=== PATIENT | female | born 1955 | race Caucasian/White ===

== ENCOUNTER 2018-08-02 16:53 | Outpatient (RCR) | payer MEDICARE ==
[2018-08-02 17:14] LABS: BASOPHILS % (AUTO) 0 % (0-10); EOSINOPHILS # (AUTO) 0.1 10^3/uL (0.0-0.3); EOSINOPHILS % (AUTO) 1 % (0-10); HEMATOCRIT 43 % (35-52); HEMOGLOBIN 14.5 G/DL (11.5-16.0); LYMPHOCYTES # (AUTO) 0.8 X 10^3 (1.0-4.0); LYMPHOCYTES % (AUTO) 13 % (12-44); MEAN CORPUSCULAR HEMOGLOBIN 29 PG (25-34); MEAN CORPUSCULAR HGB CONC 34 G/DL (32-36); MEAN CORPUSCULAR VOLUME 86 FL (80-99); MEAN PLATELET VOLUME 9.7 FL (7.4-10.4); MONOCYTES % (AUTO) 16 % (0-12); NEUTROPHILS # (AUTO) 4.3 X 10^3 (1.8-7.8); NEUTROPHILS % (AUTO) 69 % (42-75); PLATELET COUNT 190 10^3/uL (130-400); RED CELL DISTRIBUTION WIDTH 14.7 % (10.0-14.5); WHITE BLOOD COUNT 6.2 10^3/uL (4.3-11.0)
[2018-08-04] MEDS ORDERED: ONDA4TAB11 PO (11:01)
== END 2018-10-31 | disposition home or self-care (01) ==
LOC: LAB 16:53 → EDSTATUS 08-03 08:56
PROVIDERS: ATTEND Nurse Practitioner Family
DX: R19.7 Diarrhea, unspecified (principal); R50.9 Fever, unspecified
CPT/HCPCS: 36415; 85025; 87015; 87045; 87046; 87324; 87449; 87899

== ENCOUNTER 2018-08-04 06:42 | Emergency (ER) | payer MEDICARE ==
[~2018-08-04] VITALS: Ht 172.7 cm; Wt 80.7 kg
[2018-08-04] MEDS ORDERED: NS IV 1000 ML 1,000 ML IV STA (07:00)
[2018-08-04] MEDS ORDERED: ONDANSETRON 4 MG/2 ML (SDV) Z0FRAN IVP ONE (07:00)
--- NOTE | 2018-08-04 08:01 | ED GI ---
General Chief Complaint: Abdominal/GI Problems Stated Complaint: VOMITING Nursing Triage Note: PT AMB TO ROOM 10, A/OX3. PT C/O ABDOMINAL CRAMPS AND N/V/D SINCE TUESDAY. PT WENT TO A CLINIC BACK HOME AND THEY PUT HER ON A CLEAR LIQUID DIET, BUT PT COULDN'T EVEN KEEP THE POWERADE DOWN. PT STATES THEY TESTED HER STOOL BUT SHE HASN'T RECEIVED THE RESULTS YET. Sepsis Screen: No Definite Risk Source of Information: Patient Exam Limitations: No Limitations (MARCIO BOLES MD) History of Present Illness Date Seen by Provider: August 04, 2018 Time Seen by Provider: 07:00 Initial Comments Here with report of nausea, vomiting and diarrhea for the last 4-5 days. She has been seen by her provider and started on medication for diarrhea as well as nausea. She is unable to keep anything down. She's had more episodes of vomiting and diarrhea this morning and is beginning to feel weak. She did have stool cultures ordered that the tests are not completely yet. Denies blood in her stool. Timing/Duration: 4-5 Days Severity/Quality: Moderate, Cramping Location: Generalized Abdomen Radiation: No Radiation Activities at Onset: None Modifying Factors: Improves With Defecating; Worsens With Eating Associated Symptoms: No Back Pain, No Chest Pain, No Fever/Chills; Fatigue, Nausea/Vomiting; No Shortness of Air; Weakness (MARCIO BOLES MD) Allergies and Home Medications Allergies Coded Allergies: codeine (Verified Allergy, Unknown, 08/04/18) Home Medications Ondansetron 4 Mg Tab.rapdis, 4 MG PO Q4H PRN for NAUSEA/VOMITING-1ST LINE Prescribed by: INOCENCIA WILLIS on 08/04/18 1101 Patient Home Medication List Home Medication List Reviewed: Yes (MARCIO BOLES MD) Review of Systems Review of Systems Constitutional: see HPI; No chills, No fever EENTM: No Symptoms Reported Respiratory: No Symptoms Reported Cardiovascular: Denies Chest Pain, Denies Edema Gastrointestinal: Abdominal Pain, Diarrhea, Nausea, Vomiting Genitourinary: No Symptoms Reported Musculoskeletal: no symptoms reported Psychiatric/Neurological: No Symptoms Reported (MARCIO BOLES MD) All Other Systems Reviewed Negative Unless Noted: Yes (MARCIO BOLES MD) Past Xiaecwm-Azbndf-Hwhzwk Hx Past Med/Social Hx: Reviewed Nursing Past Med/Soc Hx (MARCIO BOLES MD) Patient Social History Alcohol Use: Denies Use Recreational Drug Use: No 2nd Hand Smoke Exposure: No Recent Foreign Travel: No Contact w/Someone Who Travel: No Recent Infectious Disease Expo: No Recent Hopitalizations: No (MARCIO BOLES MD) Seasonal Allergies Seasonal Allergies: No (MARCIO BOLES MD) Past Medical History Surgeries: Yes (back surgery x 2 ) Gallbladder, Tonsillectomy Respiratory: No Cardiac: Yes Hypertension Neurological: No Genitourinary: No Gastrointestinal: No Musculoskeletal: No Endocrine: Yes Hypothyroidsim HEENT: No Cancer: No Psychosocial: No Integumentary: No (MARCIO BOLES MD) Family Medical History Reviewed Nursing Family Hx (MARCIO BOLES MD) Physical Exam Vital Signs Vital Signs - First Documented 08/04/18 06:54 Temp 98.0 Pulse 76 Resp 18 B/P (MAP) 138/86 (103) Pulse Ox 97 O2 Delivery Room Air (INOCENCIA RANDHAWA MD) Vital Signs Capillary Refill : Less Than 3 Seconds (MARCIO BOLES MD) Height/Weight/BMI Height: 5'8.00" Weight: 178lbs. oz. 80.084147xa; BMI Method:Stated General Appearance: WD/WN, no apparent distress HEENT: PERRL/EOMI, pharynx normal Neck: full range of motion, supple Respiratory: lungs clear, normal breath sounds Cardiovascular: regular rate, rhythm, no murmur Gastrointestinal: non tender, soft Extremities: non-tender, normal inspection Back: normal inspection, no vertebral tenderness Neurologic/Psychiatric: alert, oriented x 3 Skin: normal color, warm/dry (MARCIO BOLES MD) Progress/Results/Core Measures Results/Orders Lab Results Laboratory Tests Test 08/04/18 08:00 08/04/18 09:49 08/04/18 11:13 Range/Units White Blood Count 5.4 4.3-11.0 10^3/uL Red Blood Count 4.56 4.35-5.85 10^6/uL Hemoglobin 13.3 11.5-16.0 G/DL Hematocrit 39 35-52 % Mean Corpuscular Volume 85 80-99 FL Mean Corpuscular Hemoglobin 29 25-34 PG Mean Corpuscular Hemoglobin Concent 34 32-36 G/DL Red Cell Distribution Width 14.2 10.0-14.5 % Platelet Count 183 130-400 10^3/uL Mean Platelet Volume 9.8 7.4-10.4 FL Neutrophils (%) (Auto) 73 42-75 % Lymphocytes (%) (Auto) 13 12-44 % Monocytes (%) (Auto) 13 H 0-12 % Eosinophils (%) (Auto) 1 0-10 % Basophils (%) (Auto) 0 0-10 % Neutrophils # (Auto) 3.9 1.8-7.8 X 10^3 Lymphocytes # (Auto) 0.7 L 1.0-4.0 X 10^3 Monocytes # (Auto) 0.7 0.0-1.0 X 10^3 Eosinophils # (Auto) 0.1 0.0-0.3 10^3/uL Basophils # (Auto) 0.0 0.0-0.1 10^3/uL Sodium Level 139 135-145 MMOL/L Potassium Level 3.3 L 3.6-5.0 MMOL/L Chloride Level 106 98-107 MMOL/L Carbon Dioxide Level 24 21-32 MMOL/L Anion Gap 9 5-14 MMOL/L Blood Urea Nitrogen 9 7-18 MG/DL Creatinine 0.80 0.60-1.30 MG/DL Estimat Glomerular Filtration Rate > 60 BUN/Creatinine Ratio 11 Glucose Level 112 H 70-105 MG/DL Calcium Level 8.7 8.5-10.1 MG/DL Corrected Calcium 8.9 8.5-10.1 MG/DL Magnesium Level 1.9 1.8-2.4 MG/DL Total Bilirubin 0.8 0.1-1.0 MG/DL Aspartate Amino Transf (AST/SGOT) 102 H 5-34 U/L Alanine Aminotransferase (ALT/SGPT) 129 H 0-55 U/L Alkaline Phosphatase 228 H 40-136 U/L Total Protein 6.3 L 6.4-8.2 GM/DL Albumin 3.8 3.2-4.5 GM/DL Lipase 16 8-78 U/L Urine Color YELLOW Urine Clarity CLEAR Urine pH 7 5-9 Urine Specific [place] 1.010 L 1.016-1.022 Urine Protein NEGATIVE NEGATIVE Urine Glucose (UA) NEGATIVE NEGATIVE Urine Ketones 2+ H NEGATIVE Urine Nitrite NEGATIVE NEGATIVE Urine Bilirubin NEGATIVE NEGATIVE Urine Urobilinogen NORMAL NORMAL MG/DL Urine Leukocyte Esterase 1+ H NEGATIVE Urine RBC (Auto) NEGATIVE NEGATIVE Urine RBC 0-2 /HPF Urine WBC 2-5 /HPF Urine Squamous Epithelial Cells 0-2 /HPF Urine Crystals NONE /LPF Urine Bacteria TRACE /HPF Urine Casts NONE /LPF Urine Mucus NEGATIVE /LPF Urine Culture Indicated YES (INOCENCIA RANDHAWA MD) My Orders Orders - INOCENCIA RANDHAWA MD Hepatitis Panel Acute (08/04/18 10:43) (INOCENCIA RANDHAWA MD) Medications Given in ED Current Medications Medications Dose Ordered Sig/Tyler Route Start Time Stop Time Status Last Admin Dose Admin Lactated Ringer's 1,000 ml @ 0 mls/hr Q0M ONCE IV 08/04/18 09:05 08/04/18 09:07 DC 08/04/18 09:14 1,000 MLS/HR Ondansetron HCl 4 mg ONCE ONCE IVP 08/04/18 07:00 08/04/18 07:06 DC 08/04/18 08:13 4 MG (INOCENCIA RANDHAWA MD) Vital Signs/I&O 08/04/18 08/04/18 06:54 11:16 Temp 98.0 Pulse 76 76 Resp 18 18 B/P (MAP) 138/86 (103) 127/82 (97) Pulse Ox 97 97 O2 Delivery Room Air (INOCENCIA RANDHAWA MD) Blood Pressure Mean: 103 Progress Progress Note : Progress Note Care of this patient was assumed from Dr. Boles after initial assessment and treatment. Nausea was treated with Zofran. Patient was aggressively hydrated with a liter of IV normal saline and a liter of LR. Labs were reviewed. Patient was found to have mildly elevated liver enzymes. She does not have a history of liver disease or hepatitis. She also reports she will be here for the next 3 weeks and will not have access to her primary care provider out of town. For this reason, follow-up labs were ordered for tomorrow. Labs will be called to me for review. In the meantime, patient was given instructions for oral hydration and a prescription of Zofran was provided. Patient reports she ate a taco salad at a [place] food restaurant that did not taste right. Diarr hea ensued to the day after. She is concerned about some type of food poisoning. Because of the elevated transaminases, and acute hepatitis panel was drawn before departure. (INOCENCIA RANDHAWA MD) Departure Impression Primary Impression: Nausea vomiting and diarrhea Additional Impression: Elevated liver enzymes Disposition: 01 HOME, SELF-CARE Condition: Improved Departure-Patient Inst. Decision time for Depature: 10:45 (INOCENCIA RANDHAWA MD) Referrals: NO,LOCAL PHYSICIAN (PCP/Family) Primary Care Physician Patient Instructions: Nausea and Vomiting, Adult Add. Discharge Instructions: Drink plenty of clear liquids. Pedialyte for the generic equivalent is perfectly formulated for maximum hydration. This may be used if you cannot tolerate larger quantities of fluid. Gradually advance your diet with small quantities of bland food as tolerated. Use Zofran (ondansetron) dissolved under the tongue every 4 hours as needed for nausea and vomiting. Stop the metronidazole antibiotic. You may continue with the antidiarrheal if necessary. Return to care in the ER if symptoms are worsening or you cannot control the nausea with your medications. Return to the hospital tomorrow for a repeat check of your liver markers. Results will be called to Dr. Randhawa and you'll be notified if you should take any action on results. Hepatitis screening will also be performed. It may take several days for this test result to return. Please follow-up with your primary care provider if you do not hear about results before you leave town. All discharge instructions reviewed with patient and/or family. Voiced understanding. Scripts Ondansetron (Ondansetron Odt) 4 Mg Tab.rapdis 4 MG PO Q4H PRN for NAUSEA/VOMITING-1ST LINE, #10 TAB Prov: INOCENCIA RANDHAWA MD 08/04/18 MARCIO BOLES MD August 04, 2018 08:01 INOCENCIA RANDHAWA MD August 04, 2018 10:51
[2018-08-04 08:21] LABS: BASOPHILS % (AUTO) 0 % (0-10); EOSINOPHILS # (AUTO) 0.1 10^3/uL (0.0-0.3); EOSINOPHILS % (AUTO) 1 % (0-10); HEMATOCRIT 39 % (35-52); HEMOGLOBIN 13.3 G/DL (11.5-16.0); LYMPHOCYTES # (AUTO) 0.7 X 10^3 (1.0-4.0); LYMPHOCYTES % (AUTO) 13 % (12-44); MEAN CORPUSCULAR HEMOGLOBIN 29 PG (25-34); MEAN CORPUSCULAR HGB CONC 34 G/DL (32-36); MEAN CORPUSCULAR VOLUME 85 FL (80-99); MEAN PLATELET VOLUME 9.8 FL (7.4-10.4); MONOCYTES # (AUTO) 0.7 X 10^3 (0.0-1.0); MONOCYTES % (AUTO) 13 % (0-12); NEUTROPHILS # (AUTO) 3.9 X 10^3 (1.8-7.8); NEUTROPHILS % (AUTO) 73 % (42-75); PLATELET COUNT 183 10^3/uL (130-400); RED CELL DISTRIBUTION WIDTH 14.2 % (10.0-14.5); WHITE BLOOD COUNT 5.4 10^3/uL (4.3-11.0)
[2018-08-04 08:45] LABS: ALANINE AMINOTRANSFERASE 129 U/L (0-55); ALBUMIN 3.8 GM/DL (3.2-4.5); ALKALINE PHOSPHATASE 228 U/L (40-136); BILIRUBIN,TOTAL 0.8 MG/DL (0.1-1.0); BUN/CREATININE RATIO 11; CALCIUM 8.7 MG/DL (8.5-10.1); CARBON DIOXIDE 24 MMOL/L (21-32); CHLORIDE 106 MMOL/L (98-107); GFR ESTIMATED > 60; GLUCOSE 112 MG/DL (70-105); LIPASE 16 U/L (8-78); MAGNESIUM 1.9 MG/DL (1.8-2.4); POTASSIUM 3.3 MMOL/L (3.6-5.0); SODIUM 139 MMOL/L (135-145); TOTAL PROTEIN 6.3 GM/DL (6.4-8.2)
[2018-08-04] MEDS ORDERED: LACTATED RINGERS 1,000 ML IV ONE ×2 (09:02→09:05)
[2018-08-04 09:54] LABS: BILIRUBIN,URINE NEGATIVE (NEGATIVE); CLARITY,URINE CLEAR; COLOR,URINE YELLOW; GLUCOSE, URINE (UA) NEGATIVE (NEGATIVE); KETONES,URINE 2+ (NEGATIVE); LEUKOCYTE ESTERASE ,URINE 1+ (NEGATIVE); NITRITE,URINE NEGATIVE (NEGATIVE); PH,URINE 7 (5-9); PROTEIN,URINE NEGATIVE (NEGATIVE); UROBILINOGEN,URINE NORMAL (NORMAL)
[2018-08-04 10:01] LABS: BACTERIA,URINE TRACE /HPF; RBC,URINE 0-2 /HPF; SQUAMOUS EPITHELIAL CELL,UR 0-2 /HPF
[2018-08-04] MEDS ORDERED: ONDA4TAB11 PO (11:01)
[2018-08-04 11:16] VITALS: BP 127/82
[2018-08-07 12:50] LABS: HEPATITIS C ANTIBODY C Non-Reactive (Non-Reactive)
== END 2018-08-04 11:15 | disposition home or self-care (01) ==
LOC: EDUNIT# 06:42 → ER 06:44
DX: R11.2 Nausea with vomiting, unspecified (principal); R19.7 Diarrhea, unspecified; R94.5 Abnormal results of liver function studies; I10 Essential (primary) hypertension; E03.9 Hypothyroidism, unspecified; Z88.5 Allergy status to narcotic agent; Z90.89 Acquired absence of other organs
CPT/HCPCS: 36415; 80053; 80074; 81000; 83690; 83735; 85025; 87088

== ENCOUNTER → 2018-08-05 | Outpatient (CLI) | payer MEDICARE ==
[~2018-08-05] MED LIST: ONDA4TAB11 PO
[2018-08-05 07:48] LABS: ALANINE AMINOTRANSFERASE 100 U/L (0-55); ALBUMIN 3.8 GM/DL (3.2-4.5); ALKALINE PHOSPHATASE 187 U/L (40-136); BILIRUBIN,TOTAL 0.7 MG/DL (0.1-1.0); BUN/CREATININE RATIO 8; CALCIUM 8.6 MG/DL (8.5-10.1); CARBON DIOXIDE 25 MMOL/L (21-32); CHLORIDE 106 MMOL/L (98-107); CREATININE SERUM 0.79 MG/DL (0.60-1.30); GFR ESTIMATED > 60; GLUCOSE 88 MG/DL (70-105); POTASSIUM 3.1 MMOL/L (3.6-5.0); SODIUM 143 MMOL/L (135-145); TOTAL PROTEIN 6.3 GM/DL (6.4-8.2)
== END ==
LOC: LAB 07:13
PROVIDERS: ATTEND Family Medicine
DX: R11.2 Nausea with vomiting, unspecified (principal); R74.8 Abnormal levels of other serum enzymes; R19.7 Diarrhea, unspecified
CPT/HCPCS: 36415; 80053; 85610